=== PATIENT | female | born 1995 | race Caucasian/White ===

== ENCOUNTER 2018-08-26 01:45 | Emergency (ER) | payer BC ==
--- NOTE | 2018-08-26 01:53 | ER Report ---
History and Physical Time Seen By MD: 01:53 HPI/ROS CHIEF COMPLAINT: Intoxication HISTORY OF PRESENT ILLNESS: Patient is a 23-year-old female here with suspected alcohol intoxication on the patient's 23st birthday. Patient reportedly drank large quantities of alcohol for her with subsequent episodes of vomiting, somnolence. Patient vomited once in the emergency department complaining of nausea, general malaise. Patient is afebrile, hemodynamically stable at time of evaluation. REVIEW OF SYSTEMS: Constitutional: No fever, no chills. Eyes: No discharge. ENT: No sore throat. Cardiovascular: No chest pain, no palpitations. Respiratory: No cough, no shortness of breath. Gastrointestinal: No abdominal pain, + nausea and vomiting. Genitourinary: No hematuria. Musculoskeletal: No back pain. Skin: No rashes. Neurological: No headache. Allergies: Coded Allergies: No Known Drug Allergies (Unverified , 08/26/18) Home Meds Reported Medications Spironolactone (SPIRONOLACTONE) 100 Mg Tablet, PO 08/26/18 Constitutional Vital Sign - Last 24 Hours 08/26/18 01:48 Temp 97.7 Pulse 98 Resp 16 B/P (MAP) 122/85 Pulse Ox 96 O2 Delivery Room Air Intake and Output 08/25/18 08/25/18 08/26/18 15:00 23:00 07:00 Output Total 200 ml Balance -200 ml Physical Exam General Appearance: The patient is alert, has no immediate need for airway protection and no signs of toxicity. NAD. Intoxicated, somnolent, responds to verbal commands Eyes: Pupils equal and round no pallor or injection. ENT, Mouth: Mucous membranes are moist. Respiratory: There are no retractions, lungs are clear to auscultation. Cardiovascular: Regular rate and rhythm. Gastrointestinal: Abdomen is soft and non tender, no masses, bowel sounds normal. Neurological: No focal deficits Skin: Warm and dry, no rashes. Musculoskeletal: Neck is supple non tender. DIFFERENTIAL DIAGNOSIS: After history and physical exam differential diagnosis was considered for alcohol intoxication, polysubstance intoxication, dehydration, gastroenteritis Medical Decision Making ED Course/Re-evaluation ED Course Patient is a 23-year-old female here after celebrating her 23st birthday with reports of excessive alcohol ingestion and subsequent intoxication with several episodes of vomiting, nausea and general malaise. Patient was given a liter of fluid intravenously with Reglan. She was hemodynamically stable throughout course, afebrile, nontoxic appearing. Patient was given a prescription for Zofran ODT's for nausea and vomiting every 4-6 hours when necessary. Decision to Disposition Date: Aug 26, 2018 Decision to Disposition Time: 03:16 Depart Departure Latest Vital Signs Vital Signs Date Time Temp Pulse Resp B/P (MAP) Pulse Ox O2 Delivery O2 Flow Rate FiO2 08/26/18 01:48 97.7 98 16 122/85 96 Room Air Impression: Primary Impression: Acute alcohol intoxication Condition: Improved Disposition: HOME OR SELF-CARE New Scripts Ondansetron (ZOFRAN ODT) 4 Mg Tab.rapdis 4 MG PO Q6H PRN for NAUSEA, #30 TAB.SHAWNA Prov: MONROE HAMPTON DO 08/26/18 Patient Instructions: Alcohol Intoxication (DC) Additional Instructions: Please drink plenty of water. You may take Zofran 1 tablet every 4-6 hours as needed for nausea and vomiting. MONROE HAMPTON DO Aug 26, 2018 01:53
[2018-08-26] MEDS ORDERED: SPIR100T33 PO (01:58)
[2018-08-26] MEDS ORDERED: METOCLOPRAMIDE 10 MG/2 ML SDV IVP ONE (02:05)
[2018-08-26] MEDS ORDERED: NS(*) 0.9% 1000 ML BAG 1,000 ML IV ONE (02:05)
[2018-08-26 03:15] VITALS: BP 93/65
[2018-08-26] MEDS ORDERED: ONDA4TAB PO (03:16)
== END 2018-08-26 03:22 | disposition home or self-care (01) ==
LOC: ER 02:08
DX: F10.120 Alcohol abuse with intoxication, uncomplicated (principal)
CPT/HCPCS: 96361; 96374; 99284; J2765; J7030